=== PATIENT | female | born 1940 | race Caucasian/White ===

== ENCOUNTER 2016-04-18 07:27 | Inpatient (IN) | payer MEDICARE, OTHER ==
--- NOTE | ~2016-04-18 | DS ---
Discharge Summary [facility] [address] [place]. [address] NAME: EDGARDO MCGOVERN : 38 STATUS : ADM IN [facility]#: [id number] AGE: 75 ADM/REG DATE : 04/18/16 MR#: [id number] REPORT SERV DATE: 04/24/16 DICTATED BY: THUAN WHITING DATE: 04/24/16 REPORT STATUS : Draft TRANSCRIBED BY: MODL DATE: 04/24/16 ADMISSION DATE: 04/18/2016 DISCHARGE DATE: OUTPATIENT INSPECTOR RECEIVING: Violet Bhatt M.D. CONSULTING PHYSICIAN FOR SURGERY: Cody Peña M.D. FINAL DIAGNOSES: 1. Acute diverticulitis. 2. Chronic obstructive pulmonary disease. 3. Coronary artery disease with history of coronary artery bypass graft and myocardial infarction. 4. History of multiple deep vein thromboses with inferior vena filter. 5. Diabetes. 6. Tobacco abuse. 7. Chronic pain. DIAGNOSTIC EXAM: Echocardiogram showing left ventricular systolic function intact at 60%, left ventricular diastolic function intact, right ventricle systolic function intact. No significant valvular dysfunction. CAT scan of the abdomen and pelvis showing diverticulosis with minimal sigmoid diverticulitis, similar compared to 04/19/2016, minimal bibasilar pleural fluid and atelectasis, right greater than the left, cholecystectomy, possible small hiatal hernia, bilateral renal cysts, minimal hyperdense cyst or nodule, not well evaluated without IV contrast, IVC filter, calcific atherosclerosis with slight ectasia of the abdominal aorta, hysterectomy, lumbar spine surgical changes, degenerative disk disease, old compression fracture at T12. HOSPITAL COURSE: Please refer to the H and P done by Dr. Martines dated April 18, 2016. The interim discharge summary done by Anatoly Berman since I took care of this patient. The patient consulting surgeon was contemplating of having surgery. However, the patient went to fluid overload and she mentioned that she was told that she has congestive failure in the past. We got Cardiology involved, got the records from Dr. Bhatt and did the above echo. They cleared the patient for surgery if needed. However, the surgeon repeated a CAT scan, which shows the above findings. With her clinically improving, they decided to forego emergent surgery and have her follow up next week for an elective one later on. This was relayed to the patient, so the patient will be discharged home today with the above diagnosis. She will follow up with Dr. Toño Campos in one to two weeks. Follow up with Cardiology, Dr. Bhatt in a month, and [place] next week. The patient will be on the following medications: Norvasc 2.5 mg a day, aspirin 81 mg a day, Lipitor 40 mg at bedtime, vitamin D 1000 units a day, Plavix 75 mg a day, fentanyl patch 25 mcg q.72 hours. She will be off the Lasix for now, Lantus 10 units at bedtime, Imdur 60 mg in the morning, melatonin 5 mg at bedtime, fatty acid 1000 mg a day, Protonix 40 mg every morning, Anoro Ellipta inhaled q.a.m., Levaquin 750 mg every 48 hours for one more week, Discharge Summary [address] [address] NAME: EDGARDO MCGOVERN : 38 STATUS : ADM IN [facility]#: [id number] AGE: 75 ADM/REG DATE : 04/18/16 MR#: [id number] REPORT SERV DATE: 04/24/16 DICTATED BY: THUAN WHITING. DATE: 04/24/16 REPORT STATUS : Draft TRANSCRIBED BY: DISHA DATE: 04/24/16 Humalog four units with breakfast and lunch, five units with supper, Cozaar 25 mg in the morning, Percocet 10/325 one tab q.4 hours p.r.n., ProAir two puffs p.r.n. This has been explained to the patient. She agreed and understood the plan. TIMO/DISHA Thuan Whiting M.D. / [id number] CC: Katherine Chinchilla D.O.
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
--- NOTE | ~2016-04-18 | CN ---
Consultation Report [facility] [address] [place]. [address] NAME: EDGARDO DEE : 39 STATUS : ADM IN [facility]#: [id number] AGE: 75 ADM/REG DATE : 04/18/16 MR#: [id number] REPORT SERV DATE: 04/22/16 DICTATED BY: ALEJANDRO GRULLON DATE: 04/22/16 REPORT STATUS : Draft TRANSCRIBED BY: MODL DATE: 04/22/16 CARDIOLOGY CONSULTATION DATE OF CONSULTATION: 04/22/2016 REASON FOR CONSULTATION: Preoperative evaluation prior to possible colectomy in a 75-year- old woman with multiple medical problems including known coronary heart disease, status post coronary artery bypass grafting surgery, and multiple previous percutaneous coronary interventions. HISTORY OF PRESENT ILLNESS: Ms. Dee is a 75-year-old woman with known coronary heart disease and multiple medical problems, who is a patient of Dr. Violet Bhatt. The patient was admitted to [facility] on 04/18/2016 with a history of several weeks of abdominal pain, alternating diarrhea, and constipation. The patient was noted to have a possible obstruction on colonoscopy. She apparently has also been diagnosed with diverticulitis. It was felt that the patient will require surgical management for her partial bowel obstruction. The patient underwent coronary artery bypass grafting surgery in the year 2010. The patient subsequently suffered an ST-segment elevation myocardial infarction in 01/2014. At that time, she had two drug-eluting stents placed to the circumflex and obtuse marginal branch. The patient underwent diagnostic angiography in 10/2014. At that time, she was found to have patent stents with no intervenable coronary heart disease. The patient reports she has been more or less stable since that time. The patient's most recent echocardiogram according to notes obtained from [facility] Cardiology indicate that the patient's echo from 03/2014 showed a left ventricular ejection fraction of 50% to 55% with a small wall motion abnormality involving the distal anterior septal myocardium, distal anterior wall, and inferoapical segment. The patient reports that overall she has been stable from a cardiovascular perspective. She denies any recent history of chest pain. She did have an episode of dyspnea a couple of days ago. The patient reports that she awoke from sleep with a sensation of shortness of breath. However, the patient denies any recent weight gain, and in fact, reports a roughly five to six pound weight loss over the preceding several weeks. She has chronic exertional dyspnea and poor functional status. She is unable to perform the equivalent of 4 METs of activity. The patient is able to walk on a level surface, but will occasionally have to stop for shortness of breath. She uses nasal cannula oxygen at home as needed. PAST MEDICAL HISTORY: 1. Coronary artery disease as noted above, status post coronary artery bypass grafting surgery. 2. Advanced chronic obstructive pulmonary disease. 3. History of pulmonary embolism. 4. History of first-degree AV block. Consultation Report [place] [id number] [facility] [place]. [address] NAME: EDGARDO DEE : 38 STATUS : ADM IN [facility]#: [id number] AGE: 75 ADM/REG DATE : 04/18/16 MR#: [id number] REPORT SERV DATE: 04/22/16 DICTATED BY: ALEJANDRO GRULLON DATE: 04/22/16 REPORT STATUS : Draft TRANSCRIBED BY: DISHA DATE: 04/22/16 5. Optic neuritis. 6. 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 7. Hypertension. 8. Dyslipidemia. 9. Obstructive sleep apnea-noncompliant with CPAP. 10.The patient has a history of paroxysmal atrial fibrillation reported on her most recent note from Dr. Bhatt, however, the patient is apparently unaware of this. She also has apparently not being treated with an oral anticoagulant. PAST SURGICAL HISTORY: Significant for: 1. Coronary artery bypass grafting surgery as described above. 2. Bilateral mastectomy. 3. Diskectomy for lumbar spine disease. 4. Tonsillectomy. 5. Cholecystectomy. 6. Hysterectomy. 7. Appendectomy. FAMILY HISTORY: The patient's father at age 53 of myocardial infarction. Her mother at age 60 years of myocardial infarction. Both of the patient's brothers have been diagnosed with coronary heart disease. SOCIAL HISTORY: The patient is a one-half pack per day smoker for many years. She has been counseled to stop smoking on several occasions and patently refuses. She has no known history of alcohol or drug use. ALLERGIES: THE PATIENT HAS DOCUMENTED ALLERGIES TO MORPHINE, FLAGYL, AMIODARONE, BRILINTA, AND CHANTIX. HOME MEDICATIONS: 1. Albuterol HFA 2 puffs q.4 hours as needed. 2. Amlodipine 2.5 mg p.o. q.a.m. 3. Aspirin 81 mg daily. 4. Atorvastatin 40 mg p.o. q.h.s. 5. Vitamin D3 1000 units p.o. q.a.m. 6. Plavix 75 mg p.o. q.a.m. 7. Fentanyl 25 mcg transdermal q.72 hours. 8. Lasix 40 mg p.o. q.a.m. 9. Insulin glargine 10 units subcutaneously q.h.s. 10.Humalog insulin 4 units subcutaneously with breakfast and lunch and 5 units subcutaneously with supper. 11.Isosorbide mononitrate 60 mg p.o. q.a.m. 12.Losartan 25 mg p.o. q.a.m. 13.Melatonin 5 mg p.o. q.h.s. 14.Reddick-3 fatty acids 1 g p.o. q.a.m. Consultation Report [address] [address] NAME: EDGARDO DEE : 38 STATUS : ADM IN [facility]#: [id number] AGE: 75 ADM/REG DATE : 04/18/16 MR#: [id number] REPORT SERV DATE: 04/22/16 DICTATED BY: ALEJANDRO GRULLON DATE: 04/22/16 REPORT STATUS : Draft TRANSCRIBED BY: DISHA DATE: 04/22/16 15.Oxycodone and acetaminophen 10/325 mg one tablet q.4 hours as needed for pain. 16.Pantoprazole 40 mg p.o. q.a.m. 17.Anoro Ellipta 62.5/25 mcg inhaler 1 inhalation daily. REVIEW OF SYSTEMS: A complete 12-system review was performed. This is noncontributory except for the pertinent positives and negatives noted in the history of present illness above. PHYSICAL EXAMINATION: CONSTITUTIONAL: The patient is an elderly chronically ill-appearing white woman, who is currently in no acute distress, but wearing nasal cannula oxygen. EYES: PERRL, EOMI, clear conjunctiva. HEAD/MNT: NCAT with moist mucous membranes and grossly normal hard and soft palate. NECK: Supple with no obvious thyromegaly or lymphadenopathy CARDIOVASCULAR: Heart sounds are distant. There is a regular rhythm with a normal S1 and a physiologically split second heart sound. No significant rubs or gallops are noted. There is a faint grade 1/6 systolic murmur noted at the right upper sternal border consistent with aortic sclerosis without stenosis. The jugular venous pressure is normal. PULMONARY: There is globally decreased air movement bilaterally with prolonged expiratory phase. There are scattered dry rales noted in the lung bases, but no physical exam evidence of dullness to percussion or pulmonary edema. ABDOMINAL: Soft, non-tender, non-distended with no hepatosplenomegaly noted. EXTREMITIES: There is trace to 1+ pitting edema at the ankles bilaterally. No clubbing or cyanosis is noted at this time. MUSCULOSKELETAL: Grossly normal strength and range of motion in all extremities INTEGUMENTARY: Skin appears intact with no bruises, wounds or active lesions noted NEURO/PSYC: Alert and oriented x3, with no dysarthria, facial droop or lateralizing weakness noted. DIAGNOSTIC DATA: 12-lead EKG: The 12-lead EKG shows normal sinus rhythm with first-degree AV block. There is poor anterior R-wave progression and Q-waves noted in leads V1, V2. The findings are consistent with an anteroseptal myocardial infarction of indeterminate age. Cannot rule out inferior myocardial infarction of indeterminate age. Chest x-ray: The chest x-ray shows changes of median sternotomy with hyperinflation of the lungs consistent with chronic obstructive pulmonary disease. There is no convincing evidence of congestive heart failure. LABORATORY DATA: Sodium is 140, potassium 4.7, chloride 108, BUN is 11, creatinine is 1.1, glucose 166, magnesium 2.2. Cell count show a white blood cell count of 3.1, hemoglobin 12.7, hematocrit 34, platelets 144. BNP is elevated at 874. Troponin I is negative x3 sets. Cardiac telemetry: The patient has occasional episodes of a second-degree Mobitz I heart Consultation Report [address] [place]. [address] NAME: EDGARDO DEE : 38 STATUS : ADM IN [facility]#: [id number] AGE: 75 ADM/REG DATE : 04/18/16 MR#: [id number] REPORT SERV DATE: 04/22/16 DICTATED BY: ALEJANDRO GRULLON DATE: 04/22/16 REPORT STATUS : Draft TRANSCRIBED BY: MODLinn DATE: 04/22/16 block with no other significant arrhythmias. ASSESSMENT AND PLAN: 1. Preoperative evaluation for possible partial colectomy: The patient is at least moderate cardiac risk for this moderate risk procedure. However, she has no convincing evidence of decompensated heart failure or unstable angina. There is little evidence to support further cardiac workup at this time, though I would recommend that a transthoracic echocardiogram be performed given the patient's recent dyspnea to ensure that her left ventricular systolic function has not worsened since her most recent echocardiogram in 2014. Should the patient's left ventricular systolic function remains preserved, I feel the patient may proceed to surgery without further cardiac workup, though the patient is at least moderate cardiac risk given her poor functional capacity and advanced coronary heart disease as well as multiple uncontrolled risk factors. If the patient is a candidate for medical management for her abdominal process, this could be considered. Since the patient's most recent percutaneous coronary intervention was performed in the year 2013, it would be safe for her to discontinue Plavix at this time. The patient should continue her other cardiovascular medications including aspirin and atorvastatin if possible. 2. Second-degree Mobitz I heart block: The patient is apparently not having any symptoms related to this. No specific treatment is recommended at this time. 3. Chronic obstructive pulmonary disease: The patient is at least moderate pulmonary risk. 4. Possible history of atrial fibrillation. Should the patient have any evidence of atrial fibrillation on telemetry, we will consider starting an oral anticoagulant. Otherwise, we will defer to Dr. Bhatt. Thank you for allowing me to participate in the care of Ms. Dee. The Cardiology Service will continue to follow the patient closely during this hospitalization. JC/DISHA Alejandro Grullon MD / [id number] CC: Katherine Chinchilla D.O.
--- NOTE | ~2016-04-18 | CN ---
Consultation Report [facility] [address] [place]. [address] NAME: EDGARDO MCGOVERN : 38 STATUS : ADM IN [facility]#: [id number] AGE: 75 ADM/REG DATE : 04/18/16 MR#: [id number] REPORT SERV DATE: 04/21/16 DICTATED BY: ALEJANDRO SERRATO DATE: 04/19/16 REPORT STATUS : Draft TRANSCRIBED BY: MODL DATE: 04/19/16 CONSULTATION DATE OF CONSULTATION: 04/18/2016 REASON FOR CONSULT: Colonic stricture, concern for obstruction. HISTORY OF PRESENT ILLNESS: This is a 75-year-old female with a complex abdominal surgery history, who presented to the emergency department after she underwent a colonoscopy for routine colon surveillance due to history of polyps. Dr. Byers who was her endoscopist was unable to traverse the sigmoid colon and ordered adjunct barium enema for evaluation. The patient began having abdominal pain after her enema, and the enema did show significant narrowing of the sigmoid colon with questionable contrast within the colon wall, consistent with diverticulitis or microperforation. She was referred to the emergency department for evaluation. The patient does complain of abdominal pain over the last few weeks. She has had alternating diarrhea and constipation. She denies any hematochezia or melena. There has been no nausea or vomiting, but her primary complaint is left lower quadrant pain and bloating. She does have a significant history of coronary artery disease at an outside facility, COPD, and type 2 diabetes as well as bilateral mastectomy for breast cancer. Her surgical history is listed below. REVIEW OF SYSTEMS: All other review of systems is negative except as per HPI. PAST MEDICAL HISTORY: 1. Coronary artery disease. 2. Multiple ventral hernias after abdominoplasty and presumed deep flap for breast reconstruction, complicated by Staph infection. 3. COPD. 4. Hypertension. 5. Type 2 diabetes. 6. Dyslipidemia. 7. History of breast cancer. PAST SURGICAL HISTORY: 1. Bilateral mastectomy associated with abdominoplasty infection and multiple hernia repairs. 2. Coronary artery bypass graft. 3. Cholecystectomy. 4. Appendectomy. 5. Hysterectomy. 6. Bilateral salpingo-oophorectomy. 7. Multiple polypectomies, most recently 3 years ago. 8. Bladder repair. Consultation Report [facility] [address] [place]. [address] NAME: EDGARDO MCGOVERN : 38 STATUS : ADM IN PAT#: [id number] AGE: 75 ADM/REG DATE : 04/18/16 MR#: [id number] REPORT SERV DATE: 04/21/16 DICTATED BY: ALEJANDRO SERRATO DATE: 04/19/16 REPORT STATUS : Draft TRANSCRIBED BY: DISHA DATE: 04/19/16 9. Neck surgery. 10.Left hip surgery. 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 12.Multiple joint and shoulder surgeries. 13.Cataract surgery. ALLERGIES: 1. FLAGYL. 2. AMINOGLYCOSIDES. 3. MORPHINE. 4. CODEINE. 5. ERYTHROMYCIN. 6. TOBRAMYCIN. 7. PENICILLIN. HOME MEDICATIONS: Unable to be obtained at the time of consultation. FAMILY HISTORY: Significant for heart disease, type 2 diabetes, and cancer in two sisters. She did not know the type of cancer. SOCIAL HISTORY: The patient has smoked one pack of cigarettes for the last 60 years. She denies the use of any alcohol or illegal drugs. She lives at home. PHYSICAL EXAMINATION: VITAL SIGNS: Temperature 98.5, pulse 75, respirations 18, blood pressure 154/65, and O2 saturation 94% on room air. GENERAL APPEARANCE: The patient is alert and oriented, accompanied by her daughter. She is in no distress. HEAD, EYES, EARS, NOSE, AND THROAT: Normocephalic and atraumatic. Sclerae are anicteric. There is no facial droop or facial lesions. Oropharynx is pink and moist. Hearing is grossly normal. No otorrhea or rhinorrhea. NECK: Examination of the neck reveals no cervical lymphadenopathy or thyromegaly. CHEST: Lungs are clear to auscultation. No wheezes or rhonchi. CARDIOVASCULAR: Heart rate is regular. No murmurs. Capillary refill time is less than 2 seconds. ABDOMEN: Soft and nondistended. She is mildly tender in the left lower quadrant. There are multiple abdominal scars from prior abdominoplasty and the hernia repairs which are all well healed. No hernias are palpated. EXTREMITIES: Without deformity. No cyanosis or edema. NEUROLOGIC: Grossly intact with no focal deficits. PSYCHIATRIC: Appropriate mood and affect. LABORATORY DATA: CBC and BMP were reviewed and are, otherwise, negative with a white count of 6.8 and hemoglobin of 13. Consultation Report [facility] [address] [address] NAME: EDGARDO MCGOVREN : 38 STATUS : ADM IN [facility]#: [id number] AGE: 75 ADM/REG DATE : 04/18/16 MR#: [id number] REPORT SERV DATE: 04/21/16 DICTATED BY: ALEJANDRO SERRATO DATE: 04/19/16 REPORT STATUS : Draft TRANSCRIBED BY: MODL DATE: 04/19/16 Barium enema showed findings consistent with diverticulitis and contained perforation of a diverticulum with barium tracking of the colon wall in the sigmoid colon. ASSESSMENT AND PLAN: This is a 75-year-old female with a complex surgical history who now presents with diverticulitis and likely contained perforation. She is admitted to the Hospitalist Service with a plan for IV antibiotic administration and IV fluids. I would recommend trend in CBC as well as abdominal exams to monitor for pain improvement. Diet can slowly be advanced as long as the patient is able to tolerate it and have normal bowel movements without a rise in her CBC. General Surgery will continue to follow along. DICTATED BY: MD AZIZA Abbott/DISHA Farooq Serrato M.D. / [id number] CC: MD oGyo Jean Baptiste M.D.
--- NOTE | ~2016-04-18 | IDS ---
Interim Discharge Summary [facility] [address] [place]. [address] NAME: EDGARDO MCGOVERN : 38 STATUS : ADM IN PAT#: [id number] AGE: 75 ADM/REG DATE : 04/18/16 MR#: [id number] REPORT SERV DATE: 04/22/16 DICTATED BY: DATE: REPORT STATUS : Draft TRANSCRIBED BY: MODL DATE: 04/21/16 ADMISSION DATE: 04/18/2016 DISCHARGE DATE: INTERIM DISCHARGE DIAGNOSES: 1. Shortness of breath. 2. Acute diverticulitis. 3. 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 4. Diabetes mellitus type 2. 5. Coronary artery disease, status post coronary artery bypass graft with a history of myocardial infarction x5. 6. Chronic obstructive pulmonary disease, currently a smoker. 7. Hyperlipidemia. CONSULTING PHYSICIANS: Include Dr. Ernie Zhao, Colorectal Surgery. IMAGING: Includes a barium enema that demonstrated acute diverticulitis with a contained perforation of diverticulum. CT of the abdomen and pelvis without contrast demonstrated diverticulitis, however, did not show perforation, did show an IVC filter. She had a chest x-ray, PA and lateral, today that showed a right perihilar and right lower lobe infiltrate with small effusion; however, this is similar to prior study, January 2014. For full history and physical, please refer to Dr. Goyo Martines's dictation on 04/18/[address] Ernie Zhao's consultation dictation. HOSPITAL COURSE/PROBLEM LIST: Initially, the patient was undergoing an outpatient routine colonoscopy with Dr. Campos who noticed a colonic stricture that he was unable to pass the colonoscope past which is when she had the barium enema study noting the diverticulitis as well as contained perforation. She was admitted to the Hospitalist Service and General Surgery was consulted. Since that time, the patient is unable to have a bowel movement. She has a distended abdomen, although it is soft. She is not passing gas at this time. She does have bowel sounds, and General Surgery has followed closely with us. We placed her on Flagyl as well as Levaquin. It is noted that she has an "allergy to Flagyl;" however, this is a yeast infection that she had in the past, and it was explained to the patient that Flagyl was the best drug to place her on as she did have an abdominal perforation. Over the last several days, we trended her CBCs. Her white blood cell count is 5.3 today. She has been afebrile until this afternoon. She was 100.4. Apparently, this morning she developed some shortness of breath. Dr. Peña ordered 20 mg of Lasix IV and a portable chest x- ray. After I examined the patient this morning, she explained to me that the only symptom she had with her multiple MIs in the past was shortness of breath, and she never had chest pain, so I obtained a 12-lead EKG, which showed Mobitz type I second-degree AV block as well as an anterior septal infarct with age undetermined. There was no ST elevation or depression noted. The patient is an established patient with Dr. Bhatt, the plastering contractor locally in [place]. I will try to obtain the records from Dr. Bhatt, and the patient states that she had an echocardiogram within the last several months. She does not know the results of that echocardiogram, however. I did get a troponin level as well. We will be trending this. The 1st troponin was negative. Also, obtained a D-dimer since the patient Interim Discharge Summary [address] [place]. [address] NAME: EDGARDO MCGOVERN : 38 STATUS : ADM IN [facility]#: [id number] AGE: 75 ADM/REG DATE : 04/18/16 MR#: [id number] REPORT SERV DATE: 04/22/16 DICTATED BY: DATE: REPORT STATUS : Draft TRANSCRIBED BY: MODL DATE: 04/21/16 has a history of multiple DVTs, it was 1.060, it was elevated. This was discussed with Dr. Arnulfo Flores. It was decided since the patient has an IVC filter that we will not do a CTA of the chest at this time. I also gave the patient another 20 mg of Lasix IV. She still has some crackles in her bases. Upon auscultation of her lungs, she still had some shortness of breath and she was on 2 L nasal cannula. Her sat was 96%. I checked the BNP, which was 874.9. The patient is on Lasix 40 mg p.o. daily at home. This was not started upon admission due to an elevated creatinine of 1.24. This has improved and is now 1.1, so I will continue her p.o. Lasix in the morning 40 mg. I did return later in the afternoon today to check on the patient, and her crackles were improved as well as her shortness of breath. She felt much better. She was able to lie flat without being symptomatic. Likely, this shortness of breath was just a case of volume overload. It is now resolved. However, I will still trend the troponins as well as acquire the records from Dr. Bhatt's office. The patient is a diabetic and her hemoglobin A1c was 7.1. We do have her on a sliding scale insulin. Her blood sugars have been from 120s to 190s. Her vital signs have been stable. Her last blood pressure was 159/69, temp 100.4, heart rate 76, respirations 18. She will likely have a colon resection during this hospitalization. Surgery is optimistic in the beginning thinking that if we trended her CBCs, gave her some IV antibiotics, and the patient was able to have bowel movements that she could possibly go home and come back in several weeks for an outpatient elective surgery; however, now since the patient has not had a bowel movement and is not necessarily improving, they will probably do surgery prior to discharge. CLR/MODL Anatoly Berman NP / [id number] CC: MD Toño Jean Baptiste D.O.
[~2016-04-18 07:27] MED LIST: ACCUNEB INH; ADVAIR100 INH; AMB10 PO; AMIT25 PO; ANOROELLIPTA INH; ASA5GR PO; ASAB PO; ASABAYER PO; AVAPRO75 PO; BRILINTA90 MG PO; CALTRA600D PO; CORDARONE PO; COREG3 PO; COREG6 PO; COZ25 PO; COZ50 PO; CYMBALTA60 PO; DURA12 TOP; DURA25 TOP; FENTORA BUC; FISH-EPA1000 MG PO; HUMALOG; HUMALOGPEN SC; HUMULIN R1 ML SC; IMDUR60 PO; ISORDIL10 PO; KDUR20 PO; KLOR-CON M2020 MEQ PO; L20 PO; L40 PO; LANTUS SC; LANTUSCART SC; LIPITOR40 PO; LOP25 PO; LYRICA150 MG PO; MELATONIN5 M1 PO; NEUR300 PO; NORV25 PO; NORV5 PO; PERCOCET 10/3251 TAB PO; PERCOCET1 TA2 PO; PERCOCET1 TA4 PO; PLAVIX PO; PROAIR HFA INH; PROTONIX PO; PULRESP.5 INH; SPIRIVA INH; VITAMIN D31000 UNIT PO; ZOCOR20 PO; ZOCOR40 PO; ZOFRAN4 PO
[2016-04-18 13:21] LABS: BASOPHILS 0.4 %; BASOPHILS ABSOLUTE 0.03 10/3/uL (0.0-0.16); EOSINOPHILS 1.8 %; EOSINOPHILS ABSOLUTE 0.12 10/3/uL (0.0-0.53); HEMATOCRIT 38.5 % (36.0-48.0); IMMATURE GRANULOCYTES 0.1 %; IMMATURE GRANULOCYTES ABSOLUTE 0.01 10/3/uL (0.0-0.11); LYMPHOCYTES 22.4 %; LYMPHOCYTES ABSOLUTE 1.53 10/3/uL (0.67-4.30); MANUAL DIFF NO %; MEAN CORPUS HGB CONC 33.8 g/dL (32.0-36.0); MEAN CORPUSCULAR HEMOGLOB 28.4 pg (26.0-34.0); MEAN CORPUSCULAR VOLUME 84.1 fL (80-100); MEAN PLATELET VOLUME 9.1 fL (9.2-13.0); MONOCYTES 4.7 %; MONOCYTES ABSOLUTE 0.32 10/3/uL (0.21-1.20); NEUTROPHILS 70.6 %; NEUTROPHILS ABSOLUTE 4.81 10/3/uL (2.02-8.40); PLATELET COUNT 301 10/3/uL (150-400); RBC DISTRIBUTION WIDTH 14.1 % (12.0-16.0); RED CELL COUNT 4.58 10/6/uL (4.0-5.6); WHITE BLOOD CELLS 6.8 10/3/uL (4.5-10.5)
[2016-04-18 13:39] LABS: FERRITIN 77 NG/ML (8-252); IRON BINDING CAPACITY 298 MCG/DL (225-410); IRON, SERUM 48 MCG/DL (35-150); PHOSPHORUS, SERUM 2.8 MG/DL (2.5-4.5)
[2016-04-18 14:26] LABS: PROCALCITONIN <0.05 ng/mL (<0.5)
[2016-04-19 04:43] LABS: BASOPHILS 0.9 %; BASOPHILS ABSOLUTE 0.05 10/3/uL (0.0-0.16); EOSINOPHILS 2.8 %; EOSINOPHILS ABSOLUTE 0.16 10/3/uL (0.0-0.53); HEMATOCRIT 36.2 % (36.0-48.0); HEMOGLOBIN 12.2 g/dL (12.0-16.0); IMMATURE GRANULOCYTES 0.2 %; IMMATURE GRANULOCYTES ABSOLUTE 0.01 10/3/uL (0.0-0.11); LYMPHOCYTES 23.9 %; LYMPHOCYTES ABSOLUTE 1.37 10/3/uL (0.67-4.30); MEAN CORPUS HGB CONC 33.7 g/dL (32.0-36.0); MEAN CORPUSCULAR HEMOGLOB 28.1 pg (26.0-34.0); MEAN CORPUSCULAR VOLUME 83.4 fL (80-100); MONOCYTES 7.5 %; MONOCYTES ABSOLUTE 0.43 10/3/uL (0.21-1.20); NEUTROPHILS 64.7 %; NEUTROPHILS ABSOLUTE 3.71 10/3/uL (2.02-8.40); PLATELET COUNT 269 10/3/uL (150-400); RBC DISTRIBUTION WIDTH 14.1 % (12.0-16.0); RED CELL COUNT 4.34 10/6/uL (4.0-5.6); WHITE BLOOD CELLS 5.7 10/3/uL (4.5-10.5)
[2016-04-19 04:44] LABS: MANUAL DIFF NO %
[2016-04-19 04:58] LABS: ALBUMIN 2.7 G/DL (3.5-5.0); CALCIUM, SERUM 8.7 MG/DL (8.5-10.4); CHLORIDE, SERUM 106 MMOL/L (96-112); CO2 (CARBON DIOXIDE) 28 MMOL/L (24-34); CREATININE 1.24 MG/DL (0.55-1.02); GFR AFRICAN AMERICAN 49 ML/MIN (>=60); GFR NON AFRICAN AMERICAN 42 ML/MIN (>=60); GLUCOSE, SERUM 133 MG/DL (60-99); PHOSPHORUS, SERUM 3.1 MG/DL (2.5-4.5); POTASSIUM, SERUM 4.7 MMOL/L (3.5-5.3); SODIUM, SERUM 142 MMOL/L (135-148)
[2016-04-19 04:59] LABS: BUN (BLOOD UREA NITROGEN) 15 MG/DL (6-23)
[2016-04-20 04:32] LABS: BASOPHILS 0.5 %; BASOPHILS ABSOLUTE 0.02 10/3/uL (0.0-0.16); EOSINOPHILS 3.7 %; EOSINOPHILS ABSOLUTE 0.16 10/3/uL (0.0-0.53); HEMOGLOBIN 9.9 g/dL (12.0-16.0); IMMATURE GRANULOCYTES 0.2 %; IMMATURE GRANULOCYTES ABSOLUTE 0.01 10/3/uL (0.0-0.11); LYMPHOCYTES 25.2 %; LYMPHOCYTES ABSOLUTE 1.08 10/3/uL (0.67-4.30); MEAN CORPUS HGB CONC 33.1 g/dL (32.0-36.0); MEAN CORPUSCULAR HEMOGLOB 28.4 pg (26.0-34.0); MEAN CORPUSCULAR VOLUME 85.9 fL (80-100); MONOCYTES 8.2 %; MONOCYTES ABSOLUTE 0.35 10/3/uL (0.21-1.20); NEUTROPHILS 62.2 %; NEUTROPHILS ABSOLUTE 2.66 10/3/uL (2.02-8.40); PLATELET COUNT 216 10/3/uL (150-400); RBC DISTRIBUTION WIDTH 14.1 % (12.0-16.0); RED CELL COUNT 3.48 10/6/uL (4.0-5.6); WHITE BLOOD CELLS 4.3 10/3/uL (4.5-10.5)
[2016-04-20 04:33] LABS: HEMATOCRIT 29.9 % (36.0-48.0); MANUAL DIFF NO %
[2016-04-20 07:20] LABS: BUN (BLOOD UREA NITROGEN) 12 MG/DL (6-23); CALCIUM, SERUM 8.5 MG/DL (8.5-10.4); CHLORIDE, SERUM 111 MMOL/L (96-112); CREATININE 1.27 MG/DL (0.55-1.02); GFR AFRICAN AMERICAN 47 ML/MIN (>=60); GFR NON AFRICAN AMERICAN 41 ML/MIN (>=60); GLUCOSE, SERUM 143 MG/DL (60-99); POTASSIUM, SERUM 4.2 MMOL/L (3.5-5.3); SODIUM, SERUM 142 MMOL/L (135-148)
[2016-04-20 07:23] LABS: CO2 (CARBON DIOXIDE) 20 MMOL/L (24-34)
[2016-04-21 07:51] LABS: BASOPHILS 0.4 %; BASOPHILS ABSOLUTE 0.02 10/3/uL (0.0-0.16); EOSINOPHILS 2.5 %; EOSINOPHILS ABSOLUTE 0.13 10/3/uL (0.0-0.53); IMMATURE GRANULOCYTES 0.4 %; IMMATURE GRANULOCYTES ABSOLUTE 0.02 10/3/uL (0.0-0.11); LYMPHOCYTES 13.9 %; LYMPHOCYTES ABSOLUTE 0.73 10/3/uL (0.67-4.30); MEAN CORPUS HGB CONC 33.3 g/dL (32.0-36.0); MEAN CORPUSCULAR HEMOGLOB 28.3 pg (26.0-34.0); MEAN CORPUSCULAR VOLUME 84.9 fL (80-100); MONOCYTES 4.8 %; MONOCYTES ABSOLUTE 0.25 10/3/uL (0.21-1.20); RBC DISTRIBUTION WIDTH 14.1 % (12.0-16.0); WHITE BLOOD CELLS 5.3 10/3/uL (4.5-10.5)
[2016-04-21 07:53] LABS: HEMATOCRIT 38.1 % (36.0-48.0); HEMOGLOBIN 12.7 g/dL (12.0-16.0); PLATELET COUNT 144 10/3/uL (150-400); RED CELL COUNT 4.49 10/6/uL (4.0-5.6)
[2016-04-21 07:54] LABS: MANUAL DIFF NO %
[2016-04-21 08:02] LABS: BUN (BLOOD UREA NITROGEN) 11 MG/DL (6-23); CALCIUM, SERUM 8.5 MG/DL (8.5-10.4); CHLORIDE, SERUM 108 MMOL/L (96-112); CO2 (CARBON DIOXIDE) 24 MMOL/L (24-34); GFR AFRICAN AMERICAN 56 ML/MIN (>=60); GFR NON AFRICAN AMERICAN 49 ML/MIN (>=60); GLUCOSE, SERUM 166 MG/DL (60-99); SODIUM, SERUM 140 MMOL/L (135-148)
[2016-04-21 08:03] LABS: POTASSIUM, SERUM 4.7 MMOL/L (3.5-5.3)
[2016-04-23 06:42] LABS: BASOPHILS 0.3 %; BASOPHILS ABSOLUTE 0.02 10/3/uL (0.0-0.16); EOSINOPHILS 2.9 %; EOSINOPHILS ABSOLUTE 0.18 10/3/uL (0.0-0.53); HEMATOCRIT 34.8 % (36.0-48.0); IMMATURE GRANULOCYTES 0.3 %; IMMATURE GRANULOCYTES ABSOLUTE 0.02 10/3/uL (0.0-0.11); LYMPHOCYTES 12.1 %; LYMPHOCYTES ABSOLUTE 0.76 10/3/uL (0.67-4.30); MANUAL DIFF NO %; MEAN CORPUS HGB CONC 34.5 g/dL (32.0-36.0); MEAN CORPUSCULAR HEMOGLOB 28.8 pg (26.0-34.0); MEAN CORPUSCULAR VOLUME 83.5 fL (80-100); MEAN PLATELET VOLUME 9.2 fL (9.2-13.0); MONOCYTES 8.1 %; MONOCYTES ABSOLUTE 0.51 10/3/uL (0.21-1.20); NEUTROPHILS 76.3 %; NEUTROPHILS ABSOLUTE 4.81 10/3/uL (2.02-8.40); PLATELET COUNT 256 10/3/uL (150-400); RBC DISTRIBUTION WIDTH 13.9 % (12.0-16.0); RED CELL COUNT 4.17 10/6/uL (4.0-5.6); WHITE BLOOD CELLS 6.3 10/3/uL (4.5-10.5)
[2016-04-23 10:11] LABS: BUN (BLOOD UREA NITROGEN) 12 MG/DL (6-23); CALCIUM, SERUM 8.5 MG/DL (8.5-10.4); CHLORIDE, SERUM 102 MMOL/L (96-112); CREATININE 1.32 MG/DL (0.55-1.02); GFR AFRICAN AMERICAN 45 ML/MIN (>=60); GFR NON AFRICAN AMERICAN 39 ML/MIN (>=60); POTASSIUM, SERUM 4.2 MMOL/L (3.5-5.3); SODIUM, SERUM 139 MMOL/L (135-148)
[2016-04-23 10:12] LABS: CO2 (CARBON DIOXIDE) 31 MMOL/L (24-34); GLUCOSE, SERUM 257 MG/DL (60-99)
[2016-04-24] MEDS ORDERED: HABIT14 TOP (10:06)
[2016-04-24] MEDS ORDERED: LEVAQUIN750 MG PO (10:07)
[2016-04-24] MEDS ORDERED: FLAG500TAB PO (10:08)
== END 2016-04-24 13:24 | disposition home or self-care (01) | DRG 392 ==
LOC: RAD 07:27 → CDU1 10:04 → 5SO 04-19 14:36
PROVIDERS: Internal Medicine
DX: K57.20 Diverticulitis of large intestine with perforation and abscess without bleeding (principal); E11.40 Type 2 diabetes mellitus with diabetic neuropathy, unspecified; E87.70 Fluid overload, unspecified; K31.84 Gastroparesis; J44.9 Chronic obstructive pulmonary disease, unspecified; I44.1 Atrioventricular block, second degree; E11.43 Type 2 diabetes mellitus with diabetic autonomic (poly)neuropathy; I25.10 Atherosclerotic heart disease of native coronary artery without angina pectoris; I10 Essential (primary) hypertension; E78.5 Hyperlipidemia, unspecified; G47.33 Obstructive sleep apnea (adult) (pediatric); M51.36 Other intervertebral disc degeneration, lumbar region; M48.54XD Collapsed vertebra, not elsewhere classified, thoracic region, subsequent encounter for fracture with routine healing; F17.210 Nicotine dependence, cigarettes, uncomplicated; Z98.890 Other specified postprocedural states; Z79.899 Other long term (current) drug therapy; Z95.1 Presence of aortocoronary bypass graft; Z86.718 Personal history of other venous thrombosis and embolism; Z86.711 Personal history of pulmonary embolism; Z91.19 Patient's noncompliance with other medical treatment and regimen; Z79.4 Long term (current) use of insulin; Z88.8 Allergy status to other drugs, medicaments and biological substances; Z88.5 Allergy status to narcotic agent; Z88.1 Allergy status to other antibiotic agents; Z88.0 Allergy status to penicillin; Z82.49 Family history of ischemic heart disease and other diseases of the circulatory system; Z83.3 Family history of diabetes mellitus; Z80.8 Family history of malignant neoplasm of other organs or systems; Z85.3 Personal history of malignant neoplasm of breast; Z90.49 Acquired absence of other specified parts of digestive tract
CPT/HCPCS: 71020; 74020; 74176; 74280; 80048; 80069; 82728; 82962; 83036; 83540; 83550; 83605; 83735; 83880; 84100; 84145; 84484; 85025; 85379; 93005; 93306; A9270-GY; J1170; J1940; J1956; J2405